=== PATIENT | female | born 1995 | race Caucasian/White ===

== ENCOUNTER 2019-06-07 19:46 | Emergency (ER) | payer SELFPAY ==
[~2019-06-07] VITALS: Ht 165.1 cm; Wt 120.9 kg
[2019-06-07 19:55] VITALS: Ht 165.1 cm; Wt 120.9 kg
[2019-06-07 20:28] LABS: APPEARANCE CLEAR (CLEAR); BILIRUBIN NEGATIVE (NEGATIVE); COLOR YELLOW (YELLOW); GLUCOSE NEGATIVE (NEGATIVE); KETONE NEGATIVE (NEGATIVE); NITRITE NEGATIVE (NEGATIVE); PROTEIN TRACE mg/dL (NEGATIVE); UROBILINOGEN NORMAL (NORMAL)
[2019-06-07 20:35] LABS: RED CELLS - URINE OCC /hpf (0-5); WHITE CELLS - URINE 0-5 /hpf (NEGATIVE)
[2019-06-07 20:36] LABS: AMORPHOUS SEDIMENT <1+ /lpf (NONE SEEN); BACTERIA FEW /hpf (NEGATIVE)
[2019-06-07 20:56] LABS: BASOPHILS 0.2 % (0-2); EOSINOPHILS 2.5 % (0-7); HEMATOCRIT 42.4 % (36.0-48.0); HEMOGLOBIN 14.1 g/dL (12-16); IMMATURE GRANULOCYTES 0.2 % (0-5); LYMPHOCYTES 39.3 % (15-50); MCH 30.1 pg (26.0-34.0); MCHC 33.3 g/dL (31.0-37.0); MCV 90.4 fL (80.0-100.0); MEAN PLATELET VOLUME 9.9 fL (7.4-10.4); MONOCYTES 6.5 % (2-11); NEUTROPHILS 51.3 % (40-80); PLATELET COUNT 264 10x3/uL (130-400); RBC 4.69 10x6/uL (4.00-5.40); RDW 12.4 % (11.5-14.5); WBC 10.3 10x3/uL (4.8-10.8)
[2019-06-07 21:12] LABS: CALC OSMOLALITY 282 mosm/kg (275-300); CARBON DIOXIDE 26.9 mmol/L (21.0-32.0); CHLORIDE - SERUM 106 mmol/L (98-107); CREATININE - SERUM 0.8 mg/dL (0.6-1.3); GLUCOSE 108 mg/dL (74-106); POTASSIUM - SERUM 3.8 mmol/L (3.5-5.1); SODIUM 141 mmol/L (136-145); UREA NITROGEN 14 mg/dL (7-18); eGFR NON AFRICAN AMERICAN > 90 mL/min (90-120)
[2019-06-07 21:17] LABS: ALBUMIN 3.7 g/dL (3.4-5.0); ALKALINE PHOSPHATASE 75 U/L (46-116); ALT (SGPT) 38 U/L (10-68); BILIRUBIN - TOTAL 0.29 mg/dL (0.2-1.3); LIPASE 168 U/L (73-393)
[2019-06-07] MEDS ORDERED: ZOFRAN8 MG PO (21:47)
[2019-06-07] MEDS ORDERED: NAPROSYN500 MG PO (21:47)
[2019-06-07 22:46] VITALS: BP 145/103
[2019-06-11 21:06] LABS: CHLAMYDIA TRACHOMATIS, NAA Negative (Negative)
== END 2019-06-07 22:46 | disposition home or self-care (01) ==
LOC: D.ER 19:46
PROVIDERS: Emergency Medicine
DX: R10.9 Unspecified abdominal pain (principal); M54.5 Low back pain; N89.8 Other specified noninflammatory disorders of vagina